=== PATIENT | male | born 1945 | race Caucasian/White ===

== ENCOUNTER → 2017-03-06 | Outpatient (CLI) | payer OTHER ==
--- NOTE | ~2017-03-06 | CT4 ---
[facility] A Service of [facility] & [facility] RADIOLOGY TEXT RESULTS PATIENT: TEODORA SCHMIDT LOCATION: [facility] : 41 UNIT #: [id number] AGE: [address]: Denis Garcia MD SEX: M ORDER DR: [id number] [facility] [address] [place], [place] [address] [id number] O MR#: [id number] Acc #: [id number] NAME: TEODORA SCHMIDT : 1945 SEX: M STUDY DATE/TIME: 03/06/2017 16:15 UNIT: [facility] ROOM: STUDY DESCRIPTION: CT Abd and Pelv Wo Cont Attending Physician: Denis Garcia M.D. Referring Physician: Denis Garcia M.D. Ordering Physician: Ignacio Keen M.D. Primary Care Physician: Dinorah Ford M.D. MEDICAL IMAGING REPORT This report is preliminary unless electronic signature is present EXAM CT abdomen and pelvis 03/06/2017 HISTORY Stones. Pain in low back. Pain in upper abdomen, left upper quadrant. Diffuse abdomen pain, lower abdomen pain x 03/05/2017. TECHNIQUE CT abdomen and pelvis performed without administration of oral or intravenous contrast. This CT exam was performed with one or more of the following radiation dose reduction techniques: automatic exposure control, adjustment of mA and/or kV according to patient size, and iterative reconstruction. COMPARISON STUDIES No prior dedicated CTs of abdomen and pelvis for comparison. There are limited views of the upper abdomen and CT of the chest dated 10/03/2005. FINDINGS Lung bases show emphysema. Areas of mild basilar bronchiectasis without mucous plugging. Areas of linear scarring. Calcified granuloma left lung base and right lung base. Inferior heart and pericardium unremarkable. Liver unremarkable. Posterior to the right hepatic lobe, there is a rim-calcified structure measuring 2 cm x 1.2 cm, exact etiology unclear. Unusual rim-calcified lymph node could be considered. Sequelae of prior trauma with dystrophic calcification could be considered. This was present in 2005 and is favored to be benign. The gallbladder and spleen notable only for calcified splenic granulomata. Pancreas and adrenal glands unremarkable. Lobulated appearance of the kidneys. Multiple bilateral simple-appearing cysts. There is an exophytic, somewhat bilobed structure from the anterior mid-left kidney measuring about 2.6 cm x 3.1 STS. [facility] A Service of [facility] & [facility] RADIOLOGY TEXT RESULTS PATIENT: TEODORA SCHMIDT LOCATION: [facility] : 41 UNIT #: [id number] AGE: [address]: Denis Garcia MD SEX: M ORDER DR: rigo. Along its posterior aspect, this appears relatively ISO dense. This may represent a complicated cyst but further characterization with multiphase contrast-enhanced CT recommended to exclude solid nodule. There is a hyperdense nodule lower pole of the left kidney measuring about 1.1 cm in diameter, probably complicated cyst with products of hemorrhage or proteinaceous fluid internally. There are some parenchymal calcifications in the upper pole of the left kidney. There are non-obstructing left renal calculi, the largest of which is in the lower pole measuring up to 5 mm in diameter. No left hydronephrosis or hydroureter. No ureteral calculus and no secondary sign of left side stone passage. The right kidney shows a lower pole calculus measuring 2-3 mm. No hydronephrosis or hydroureter and no secondary signs of recent stone passage. Calcified phleboliths in pelvis. No acute-appearing perinephric inflammatory change. CT PELVIS: No inguinal adenopathy. Prostatic calcifications. Urinary bladder unremarkable. No pelvic or retroperitoneal adenopathy. Distal esophagus, stomach, small bowel, appendix unremarkable. Pancolonic diverticulosis without findings of diverticulitis. Extensive atherosclerotic arterial calcifications. No aneurysm. Multilevel degenerative change in the spine. Straightening of the normal lumbar lordosis. Multilevel facet hypertrophic change and posterior disc osteophyte complexes with multilevel, at least moderate lumbar spine canal narrowing. There is no clear indication of acute bony abnormality. IMPRESSION 1. Bilateral non-obstructing renal calculi. No secondary signs of recent stone passage. No acute-appearing perinephric inflammatory change. 2. Multiple bilateral renal cysts. Probable complicated cyst anterior mid-left kidney measuring up to 3.1 cm in diameter and probable complicated cyst lower pole left kidney measuring about 1.1 cm. I have no prior dedicated renal imaging for comparison. Kidneys are best further evaluated with multiphase contrast-enhanced CT, if the patient is a candidate for iodinated contrast material. If the patient is not a candidate for contrast, then renal ultrasound could be performed for further evaluation. Certainly, any comparison in the interval from limited views of the renal upper poles on prior CT chest in 2005 would be useful. 3. Gallbladder, pancreas, appendix normal. 4. Uncomplicated pancolonic diverticulosis. 5. Emphysema and mild bronchiectasis bilateral lung bases. Areas of mild linear scarring. No acute pulmonary process seen. 6. Marked degenerative change in the lumbar spine. See discussion above. If it would assist in patient management, lumbar spine could best be further evaluated with elective MRI or CT. 7. Stable rim-calcified structure posterior to the right hepatic lobe. No change from 2006 and felt to be benign in nature. Probably partially calcified lymph node or perhaps sequelae of remote trauma. [facility]. [facility] A Service of [facility] RADIOLOGY TEXT RESULTS PATIENT: TEOD[facility] SCHMIDT [id number] 41 UNIT #: [id number] AGE: [address]: Denis Garcia MD SEX: M ORDER DR: Dictated by... Teodora Blackburn M.D. THIS IS AN ELECTRONICALLY VERIFIED REPORT Teodora Blackburn M.D. at 03/08/2017 11:34 AM PATRICIA/mele TD: 03/07/2017 11:52 JOB #: [id number] MEDICAL IMAGING REPORT Page 1 of 1 COPY
== END | disposition home or self-care (01) ==
LOC: CCAT 15:56
DX: R10.12 Left upper quadrant pain (principal); R10.31 Right lower quadrant pain; M54.5 Low back pain; N20.0 Calculus of kidney; N28.1 Cyst of kidney, acquired; K57.30 Diverticulosis of large intestine without perforation or abscess without bleeding; M47.896 Other spondylosis, lumbar region
CPT/HCPCS: 74176